=== PATIENT | male | born 1950 | race Two or more races ===

== ENCOUNTER 2019-02-21 13:54 | Inpatient (IN) | payer OTHER ==
[~2019-02-21] VITALS: Ht 190.5 cm; Wt 131.5 kg
[2019-02-21] MEDS ORDERED: LOSARTAN-HCTZ1 EACH PO (15:09)
[2019-02-21] MEDS ORDERED: METFORMIN HCL500 MG (15:09)
[2019-02-21] MEDS ORDERED: BAYER CHILDREN'81 MG PO (15:10)
[2019-02-25] MEDS ORDERED: TRAM1TAB98 PO (08:42)
[2019-02-25] MEDS ORDERED: DUI500 PO (08:42)
[2019-03-13] MEDS ORDERED: XARELTO10 MG PO (08:18)
[2019-03-13] MEDS ORDERED: INTEGRA PLUS C1 EACH PO (08:18)
[2019-03-13] MEDS ORDERED: OXYC1TAB9 PO (08:18)
[2019-03-13] MEDS ORDERED: BACTRIM DS TAB1 EACH PO (08:18)
== END 2019-03-13 18:36 | DRG 470 ==
LOC: SURH 02-25 08:30 → O/R 03-11 13:58 → SURH 03-11 20:39
PROVIDERS: ADMIT Orthopaedic Surgery Sports Medicine
PROC: 0SRD0J9 Replacement of Left Knee Joint with Synthetic Substitute, Cemented, Open Approach (ICD-10-PCS; principal; 2019-03-11 14:00)
DX: M17.12 Unilateral primary osteoarthritis, left knee (principal); I10 Essential (primary) hypertension; E11.40 Type 2 diabetes mellitus with diabetic neuropathy, unspecified; Z79.4 Long term (current) use of insulin

== ENCOUNTER 2020-01-06 09:30 | Inpatient (IN) | payer OTHER ==
[~2020-01-06] VITALS: Ht 193 cm; Wt 137.0 kg
[~2020-01-06 09:30] MED LIST: BACTRIM DS TAB1 EACH PO; BAYER CHILDREN'81 MG PO; DUI500 PO; INTEGRA PLUS C1 EACH PO; LOSARTAN-HCTZ1 EACH PO; METFORMIN HCL500 MG; OXYC1TAB9 PO; TRAM1TAB98 PO; XARELTO10 MG PO
[2020-01-06] MEDS ORDERED: ALLOPURINOL100 MG PO (09:58)
[2020-01-06] MEDS ORDERED: HYDROCH PO (09:59)
[2020-01-06] MEDS ORDERED: PANTOPRAZOLE SO40 MG PO (10:00)
[2020-01-06] MEDS ORDERED: LATA (10:01)
[2020-01-06] MEDS ORDERED: FAMOTI PO (10:01)
[2020-01-06] MEDS ORDERED: CARVEDILOL3.125 MG PO (10:02)
[2020-01-06] MEDS ORDERED: AMLODIPINE PO (10:04)
[2020-01-06] MEDS ORDERED: COZAAR50 MG PO (10:04)
[2020-01-06] MEDS ORDERED: DUEXIS 800-26.1 EACH PO (10:05)
[2020-01-14] MEDS ORDERED: PEPCID40 MG PO (13:21)
[2020-01-14] MEDS ORDERED: NORVASC2.5 M1 PO (13:21)
[2020-01-14] MEDS ORDERED: HYDROCHLOROTH12.5 MG (13:22)
[2020-01-14] MEDS ORDERED: AZITHROMYCIN250 MG (13:24)
[2020-01-14] MEDS ORDERED: IBU800 MG (13:24)
[2020-01-15] MEDS ORDERED: OXYC1TAB9 PO (08:04)
[2020-01-15] MEDS ORDERED: XARELTO10 MG PO (08:04)
[2020-01-15] MEDS ORDERED: BACTRIM DS TAB1 EACH PO (08:04)
[2020-01-15] MEDS ORDERED: INTEGRA PLUS C1 EACH PO (08:04)
== END 2020-01-16 16:15 | DRG 470 ==
LOC: SURG 01-13 06:49 → O/R 01-13 06:49 → SURH 01-13 09:30 → SURG 01-13 18:43
PROVIDERS: ADMIT Orthopaedic Surgery Sports Medicine; ATTEND Orthopaedic Surgery Sports Medicine
PROC: 0SRC0J9 Replacement of Right Knee Joint with Synthetic Substitute, Cemented, Open Approach (ICD-10-PCS; principal; 2020-01-13 10:45)
DX: M17.11 Unilateral primary osteoarthritis, right knee (principal); Z20.828 Contact with and (suspected) exposure to other viral communicable diseases